=== PATIENT | male | born 2000 | race Caucasian/White ===

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

== ENCOUNTER 2021-05-15 13:40 | Emergency (ER) | payer OTHER ==
[2021-05-15 15:04] LABS: HEMOGLOBIN 14.9 gm/dl (14.0-17.5); RED BLOOD COUNT 4.82 M/UL (4.20-5.50); WHITE BLOOD COUNT 5.8 K/UL (4.5-11.0)
[2021-05-15 15:36] LABS: BUN/CREATININE RATIO 11 (0-10)
[2021-05-15] MEDS ORDERED: IBUPROFEN600 MG PO (19:04)
[2021-05-15] MEDS ORDERED: CYCLOBENZAPRINE10 MG PO (19:04)
== END 2021-05-15 19:20 | disposition home or self-care (01) ==
LOC: ER1 13:40
PROVIDERS: Physician Assistant
DX: S01.02XA Laceration with foreign body of scalp, initial encounter (principal); S61.411A Laceration without foreign body of right hand, initial encounter; S20.214A Contusion of middle front wall of thorax, initial encounter; Z23 Encounter for immunization; V89.2XXA Person injured in unspecified motor-vehicle accident, traffic, initial encounter
CPT/HCPCS: 70450; 71260; 72125; 72128; 80053; 85025; 90714; 99284; Q9967